=== PATIENT | female | born 1980 | race Two or more races ===

== ENCOUNTER 2019-09-06 23:19 | Emergency (ER) | payer SELFPAY ==
[~2019-09-06] VITALS: Ht 170.2 cm; Wt 72.7 kg
--- NOTE | 2019-09-06 23:40 | PHYS DOC ---
Past Medical History Past Medical History: No Pertinent History Past Surgical History: No Surgical History Smoking Status: Never Smoker Alcohol Use: None Drug Use: None General Adult EDM: Chief Complaint: CHEST PAIN HPI: HPI: Patient is a 39 year old female who presents for evaluation of chest pain, dry cough and congestion. Onset over the past several days. Patient is Czech- speaking and there is a chief i dispatcher at the bedside. She states she has shortness of air that is worse with exertion. She has a sore throat as well. There is no known exposure to COVID. Vital signs are otherwise stable. Patient is not toxic appearing Review of Systems: Review of Systems: Constitutional: Denies fever or chills. [] Eyes: Denies change in visual acuity. [] HENT: has nasal congestion and sore throat. [] Respiratory: has cough and shortness of breath. [] Cardiovascular: has chest pain but no edema. [] GI: Denies abdominal pain, nausea, vomiting, bloody stools or diarrhea. [] : Denies dysuria. [] Musculoskeletal: Denies back pain or joint pain. [] Integument: Denies rash. [] Neurologic: Denies headache, focal weakness or sensory changes. [] Endocrine: Denies polyuria or polydipsia. [] Lymphatic: Denies swollen glands. [] Psychiatric: Denies depression or anxiety. [] Heart Score: Risk Factors: Risk Factors: DM, Current or recent (<one month) smoker, HTN, HLP, family history of CAD, obesity. Risk Scores: Score 0 - 3: 2.5% MACE over next 6 weeks - Discharge Home Score 4 - 6: 20.3% MACE over next 6 weeks - Admit for Clinical Observation Score 7 - 10: 72.7% MACE over next 6 weeks - Early Invasive Strategies Allergies: Allergies: Allergies Coded Allergies Type Severity Reaction Last Updated Verified No Known Drug Allergies 12/14/15 No Physical Exam: PE: Constitutional: Well developed, well nourished, mild acute distress, non-toxic appearance. [] HENT: Normocephalic, atraumatic, bilateral external ears normal, oropharynx moist, no oral exudates, nose normal. [] Eyes: PERRL, EOMI, conjunctiva normal, no discharge. [] Neck: Normal range of motion, no tenderness, supple, no stridor. [] Cardiovascular:Heart rate regular rhythm, no murmur [] Lungs & Thorax: Bilateral breath sounds clear to auscultation [] Abdomen: Bowel sounds normal, soft, no tenderness, no masses, no pulsatile masses. [] Skin: Warm, dry, no erythema, no rash. [] Back: No tenderness, no CVA tenderness. [] Extremities: No tenderness, no cyanosis, ROM intact, no edema. [] Neurologic: Alert and oriented, normal motor function, normal sensory function, no focal deficits noted. [] Psychologic: Affect normal, judgement normal, mood normal. [] Current Patient Data: Labs: Laboratory Tests Test 09/06/19 23:59 09/07/19 00:10 09/07/19 00:16 White Blood Count 6.5 x10^3/uL Red Blood Count 4.52 x10^6/uL Hemoglobin 13.6 g/dL Hematocrit 39.4 % Mean Corpuscular Volume 87 fL Mean Corpuscular Hemoglobin 30 pg Mean Corpuscular Hemoglobin Concent 34 g/dL Red Cell Distribution Width 13.6 % Platelet Count 229 x10^3/uL Neutrophils (%) (Auto) 38 % Lymphocytes (%) (Auto) 51 % Monocytes (%) (Auto) 10 % Eosinophils (%) (Auto) 0 % Basophils (%) (Auto) 1 % Neutrophils # (Auto) 2.5 x10^3/uL Lymphocytes # (Auto) 3.3 x10^3/uL Monocytes # (Auto) 0.7 x10^3/uL Eosinophils # (Auto) 0.0 x10^3/uL Basophils # (Auto) 0.0 x10^3/uL D-Dimer (Jenna) 0.38 ug/mlFEU Sodium Level 138 mmol/L Potassium Level 3.9 mmol/L Chloride Level 103 mmol/L Carbon Dioxide Level 30 mmol/L Anion Gap 5 Blood Urea Nitrogen 8 mg/dL Creatinine 1.1 mg/dL Estimated GFR (Cockcroft-Gault) 55.9 BUN/Creatinine Ratio 7 Glucose Level 92 mg/dL Calcium Level 8.3 mg/dL Total Bilirubin 0.2 mg/dL Aspartate Amino Transf (AST/SGOT) 37 U/L Alanine Aminotransferase (ALT/SGPT) 53 U/L Alkaline Phosphatase 81 U/L Troponin I Quantitative < 0.017 ng/mL Total Protein 7.6 g/dL Albumin 3.4 g/dL Albumin/Globulin Ratio 0.8 Lipase 117 U/L Serum Test, Qualitative Negative Urine Collection Type Unknown Urine Color Yellow Urine Clarity Cloudy Urine pH 6.0 Urine Specific [place] 1.015 Urine Protein Negative mg/dL Urine Glucose (UA) Negative mg/dL Urine Ketones (Stick) Negative mg/dL Urine Blood Negative Urine Nitrite Negative Urine Bilirubin Negative Urine Urobilinogen Dipstick 0.2 mg/dL Urine Leukocyte Esterase Small Urine RBC Rare /HPF Urine WBC 5-10 /HPF Urine Squamous Epithelial Cells Many /LPF Urine Bacteria Few /HPF Urine Mucus Mod /LPF Bedside Urine HCG, Qualitative Hcg negative Current Medications Medications (Trade) Dose Ordered Sig/Jennifer Route PRN Reason Start Time Stop Time Status Last Admin Dose Admin Aspirin (Bijan Aspirin) 325 mg 1X ONCE PO 09/06/19 23:45 09/06/19 23:46 DC 09/06/19 23:55 Sodium Chloride (Normal Saline Flush) 10 ml QSHIFT PRN IV AFTER MEDS AND BLOOD DRAWS 09/06/19 23:45 EKG: EKG: EKG has normal sinus rhythm, rate 80, leftward axis, nonspecific ST segment changes, not STEMI read at 2337 [] Radiology/Procedures: Radiology/Procedures: [facility] [address] [place] [address] IMAGING REPORT Signed PATIENT: GERRI RAPP ACCOUNT: [id number] : 1980 LOCATION: ER AGE: 39 SEX: F EXAM STATUS: REG ER ORD. PHYSICIAN: MANNIE MCKEON DO REASON: chest pain, cough PROCEDURE: PORTABLE CHEST 1V AP portable chest radiograph 09/06/2019 Clinical History: Chest pain and cough. An AP erect portable digital radiograph of the chest was obtained. The cardiac and mediastinal silhouettes are within normal limits in size and configuration. No area of consolidation is seen. No pneumothorax or pleural effusion is noted. Mild degenerative changes are seen involving the thoracic spine. IMPRESSION: No area of consolidation is seen. Electronically signed by: Irma Hagan MD (09/07/2019 12:27 AM) [id number] DICTATED and SIGNED BY: IRMA HAGAN MD DATE: 09/07/19 0027 [] Course & Med Decision Making: Course & Med Decision Making Pertinent Labs and Imaging studies reviewed. (See chart for details) [] Dragon Disclaimer: Dragon Disclaimer: This electronic medical record was generated, in whole or in part, using a voice recognition dictation system. 0220 stable, feeling better at this time. The cause of her chest pain is unclear. Differential diagnosis included pneumonia, pneumothorax, COVID, pulmonary embolism,, cardiac event. None of the work-up was positive. Patient advised to quarantine until the COVID results are known in about 2 days. Patient stable for discharge. Prescription for Medrol Dosepak given Departure Departure Impression: Primary Impression: Acute chest pain Additional Impressions: Cough Dyspnea Person under investigation for COVID-19 Disposition: HOME, SELF-CARE Condition: STABLE Referrals: NO PCP (PCP) Patient Instructions: Chest Pain (Nonspecific), Shortness of Breath, [id number] Additional Instructions: Take medication as directed, return if worsen, you should quarantine until the COVID swab results are known in about 2 daysDefinicin Se le realiz la prueba de deteccin del COVID-19 o se le diagnostic dicha enfermedad. Es brittany infeccin ocasionada por un nuevo tipo de coronavirus. En la mayora de los casos, el COVID-19 provoca sntomas similares a los del resfriado. En algunas personas, puede ocasionar sntomas ms graves, tyesha problemas respiratorios. No existe un tratamiento para el virus COVID-19. El cuerpo elimina la infeccin con el tiempo. El cuidado personal ayuda a aliviar el malestar. Pasos que debe seguir 1. Cuidados personales Descanse cuando sea necesario. Los hbitos saludables pueden ayudarlo a sentirse mejor. Algunas medidas para lograr cambios incluyen lo siguiente: - Elija alimentos saludables, tyesha frutas y verduras. Kriss abundante cantidad de agua jeet todo el da. - Duerma shyam por la noche. - Si fuma, intente no hacerlo. Institute ayudar a mejorar la respiracin. - Evite el alcohol. 2. Mantenga sanos a los dems El virus puede contagiarse a otras personas. Cada vez que estornuda o tose, se liberan gotitas. Las gotitas pueden entrar en la boca, la nariz o los ojos de las personas que se encuentran cerca de usted y ocasionar la infeccin. Para reducir las probabilidades de contagiar el virus COVID-19 a otros, tenga en cuenta lo siguiente: - Qudese en casa el tiempo que el mdico se lo indique. Es posible que deba quedarse en casa hasta que la enfermedad desaparezca. Salga nicamente para recibir atencin mdica o en kevin de urgencia. - Evite las reas pblicas, los eventos o el transporte pblico. No reanude las actividades laborales o escolares hasta que el mdico lo autorice. - Llame previamente si necesita asistir a un centro mdico. Avise que es posible que haya contrado COVID-19. Institute ayudar a que le indiquen adonde debe dirigirse. Molina pueden pedirle que use brittany mscara facial cuando vaya al consultorio. Si llama a los servicios de asistencia mdica de urgencias, avseles que es posible que haya contrado COV ID-19. Mientras est en casa: - Evite el contacto directo con otras personas. Mantngase a brittany distancia aproximada de 2 metros. Si es posible, pasen la mayor parte del tiempo en bundy separadas. - Use brittany mscara facial si estar en contacto directo con otras personas, por ejemplo, si compartir brittany habitacin o un vehculo. - Pida a alguien que limpie las superficies comunes de la casa. Limpie picaportes, mesadas y lavamanos con limpiadores domsticos todos los hebert. - Al toser o estornudar, cbrase con un pauelo de papel. Despus de usarlo, deschelo de inmediato. Si no tiene un pauelo de papel, tosa o estornude en el pliegue del codo. - Lvese las sharon con frecuencia. Lvese las sharon despus de estornudar o toser. Lvese con agua y jabn jeet, al menos, 20 segundos. Si no dispone de agua y jabn, use un limpiador de sharon a base de alcohol. - No cocine para otros. Evite compartir objetos personales, tyesha tenedores, cucharas o cepillos de dientes. - Mientras est enfermo, evite el contacto directo con las mascotas. No hay indicios de si el virus se transmite a las mascotas. Esta es brittany medida de seguridad que debe tenerse en cuenta hasta que se sepa ms acerca de candi virus. El aislamiento puede ser frustrante. La interaccin social puede ayudar. Mantngase en contacto con amigos y familiares por telfono u otros medios tecnolgicos. Puede interactuar con otras personas en el hogar, viky mantenga brittany distancia motley de aproximadamente 2 metros. Seguimiento Las pruebas para confirmar la presencia del COVID-19 pueden demorar algunos hebert. Es posible que deba seguir los pasos mencionados anteriormente hasta que estn los resultados de las pruebas. Lo llamarn del consultorio mdico para saber si guzman habido algn cambio en cason aggie. Tambin le avisarn cuando pueda volver a estar cerca de otras personas. Problemas a los que debe estar atento Comunquese con el mdico si no se recupera segn lo previsto o si tiene problemas tyesha los siguientes: - Dificultad para respirar - Dolor de pecho - Empeoramiento de los sntomas Si jessica que tiene brittany urgencia, llame a los servicios de asistencia mdica de urgencias de inmediato. As taken from [facility] Methylprednisolone (MEDROL) 4 Mg Tab.ds.pk 1 PKG PO UD for inflammation, #1 PKG Prov: MANNIE MCKEON DO 09/07/19 Justicifation of Admission Dx: Justifications for Admission: Justification of Admission Dx: N/A MANNIE MCKEON DO Sep 06, 2019 23:40
[2019-09-06] MEDS ORDERED: ASPIRIN 325 MG TABLET PO ONE (23:45)
[2019-09-06] MEDS ORDERED: 0.9 % SODIUM CHLORIDE 10 ML DISP.SYRIN. IV PRN (23:45)
[2019-09-07 00:08] LABS: BASO % 1 % (0-3); EOS % 0 % (0-3); HEMATOCRIT 39.4 % (36.0-47.0); HEMOGLOBIN 13.6 g/dL (12.0-15.5); LYMPH # 3.3 x10^3/uL (1.0-4.8); LYMPH % 51 % (24-48); MEAN CORPUSCULAR HEMOGLOBIN 30 pg (25-35); MEAN CORPUSCULAR HGB CONC 34 g/dL (31-37); MEAN CORPUSCULAR VOLUME 87 fL (79-100); MONO # 0.7 x10^3/uL (0.0-1.1); MONO % 10 % (0-9); NEUT # 2.5 x10^3/uL (1.8-7.7); NEUT % 38 % (31-73); PLATELET COUNT 229 x10^3/uL (140-400); RED BLOOD COUNT 4.52 x10^6/uL (3.50-5.40); RED CELL DISTRIBUTION WIDTH 13.6 % (11.5-14.5); WHITE BLOOD COUNT 6.5 x10^3/uL (4.0-11.0)
[2019-09-07 00:17] LABS: PREG TEST PT QUAL NEGATIVE (NEG)
[2019-09-07 00:18] LABS: CALCIUM 8.3 mg/dL (8.5-10.1); CREATININE 1.1 mg/dL (0.6-1.0); GFR 55.9; POTASSIUM 3.9 mmol/L (3.5-5.1)
[2019-09-07 00:20] LABS: BILIRUBIN,URINE NEGATIVE (NEG); CLARITY,URINE CLOUDY; COLOR,URINE YELLOW; NITRITE,URINE NEGATIVE (NEG); PROTEIN,URINE NEGATIVE (NEG-TRACE); UROBILINOGEN,URINE 0.2 mg/dL (0.2 mg/dL)
[2019-09-07 00:23] LABS: ALBUMIN 3.4 g/dL (3.4-5.0); ALBUMIN/GLOBULIN RATIO 0.8 (1.0-1.7); TOTAL BILIRUBIN 0.2 mg/dL (0.2-1.0); TOTAL PROTEIN 7.6 g/dL (6.4-8.2)
[2019-09-07 00:23] LABS: SQUAMOUS EPITHELIAL CELL,UR MANY /LPF
[2019-09-07 00:24] LABS: BACTERIA,URINE FEW /HPF (0-FEW); RBC,URINE RARE /HPF (0-2)
--- NOTE | 2019-09-07 00:30 | RAD ---
AP portable chest radiograph 09/06/2019 Clinical History: Chest pain and cough. An AP erect portable digital radiograph of the chest was obtained. The cardiac and mediastinal silhouettes are within normal limits in size and configuration. No area of consolidation is seen. No pneumothorax or pleural effusion is noted. Mild degenerative changes are seen involving the thoracic spine. IMPRESSION: No area of consolidation is seen. Electronically signed by: Abiel Hagan MD (09/07/2019 12:27 AM) [id number]
[2019-09-07] MEDS ORDERED: METH4TAB2 PO (02:32)
[2019-09-07 02:40] VITALS: BP 159/83
[2019-09-07] MEDS ORDERED: methylPREDNISolone SOD SUCC PF 125 MG/2 ML VIAL. IV ONE (03:00)
--- NOTE | 2019-09-07 06:16 | EKG ---
[facility] [address] [place] [address] Test Date: 2019-09-06 Test Time: 23:33:17 Pat Name: GERRI RAPP Department: Room: Gender: F [employer] Supervisor: : 1980 Requested By: MANNIE MCKEON Order Number: [id number] Reading MD: Measurements Intervals [place] Rate: 80 P: 52 ID: [id number] QRS: 6 QRSD: 86 T: 32 QT: 396 QTc: 460 Interpretive Statements SINUS RHYTHM QRS(T) CONTOUR ABNORMALITY CONSIDER ANTEROLATERAL MYOCARDIAL DAMAGE CONSISTENT WITH INFERIOR INFARCT PROBABLY OLD ABNORMAL ECG RI6.01 No previous ECG available for comparison
== END 2019-09-07 02:51 | disposition home or self-care (01) ==
LOC: ER 23:19
DX: R07.89 Other chest pain (principal); R05 Cough; Z20.828 Contact with and (suspected) exposure to other viral communicable diseases; R06.00 Dyspnea, unspecified; R09.81 Nasal congestion
CPT/HCPCS: 36415; 71045; 80053; 81001; 81025; 83690; 84484; 84703; 85025; 85379; 87086; 93005; 99285; U0003